=== PATIENT | female | born 1940 | race Caucasian/White ===

== ENCOUNTER → 2016-05-09 | Outpatient (CLI) | payer MEDICARE, OTHER ==
[~2016-05-09] MED LIST: AMARYL2 MG PO; BACITRACIN--O.0.9 GM TP; BETADINE DPS1 GM TP; BREO ELLIPTA 21 EACH IH; COLACE-DPS100 MG PO; DELTASONE DPS10 MG PO; DILAUDID2 MG PO; DULCOLAX-DPS10 MG PR; DULERA 200/58.8 GM IH; DUONEB DPS3 ML IH; DURAGESIC1 EAC2 TP; INDERAL LA80 MG PO; MEVACOR40 MG PO; MILK OF MAGNESI10 ML PO; MYCOSTATIN PWD15 GM TP; NEURONTIN DPS100 MG PO; NEURONTIN DPS400 MG PO; NEXIUM40 MG PO; NOVOLOG100 UNIT/2 SQ; ONGLYZA5 MG PO; OXYCODON-ACETA1 EAC1 PO; PRESERVISION A1 EAC2 PO; PROAIR RESPICL90 MCG IH; PROTONIX40 MG PO; SENOKOT S1 TAB PO; SOOTHE LUBRICA1 EACH OU; SURFAK DPS240 MG PO; THERAPEUTIC MUL1 TA1 PO; TOPAMAX100 MG PO; VALIUM-DPS5 MG PO; VITAMIN D-32000 UNI1 PO
== END | disposition home or self-care (01) ==
LOC: RESC 01-31 15:23
DX: J84.9 Interstitial pulmonary disease, unspecified (principal); R94.2 Abnormal results of pulmonary function studies

== ENCOUNTER → 2016-05-30 | Outpatient (CLI) | payer MEDICARE, OTHER | END | disposition home or self-care (01) | LOC: PTH.S 08:38 | DX: Z01.812 Encounter for preprocedural laboratory examination (principal) ==

== ENCOUNTER 2016-06-04 06:58 | Inpatient (IN) | payer MEDICARE, OTHER ==
--- NOTE | 2016-06-02 09:37 | NUR ---
Received SAD person referral. Called and spoke with pt. Pt states she was a teenager when she last tried to harm herself. Pt denies current thoughts of self harm and does not have a plan. Pt states she does not take any anti-depressant medications and does not see a counselor. Pt denies any needs or concerns at this time.
[~2016-06-04] VITALS: Ht 167.6 cm; Wt 110.6 kg
--- NOTE | ~2016-06-04 | DS ---
ADMIT: 06/04/2016 RM/LOC: 533 [facility] MR#: [id number] [facility]#: [id number] [address] [facility] [address] [place], [place] [address] REN ODONNELL [address] [place] [address] General Discharge Summary SEX: F AGE: 75 : 1940 ADMISSION DATE: 06/04/2016 DISCHARGE DATE: 06/09/2016 REASON FOR ADMISSION: 1. Lumbar stenosis. 2. Lumbosacral radiculopathy. 3. History of lumbar fusion. PROCEDURE: Extension of her posterolateral fusion at lumbar 1-2 with removal of prior hardware. HOSPITAL COURSE: Ms. Odonnell tolerated her procedure well. Postoperatively, she was taken to the Med/Surg floor for monitoring and care. Dr. Freitas was consulted for co-management of her pulmonary and diabetes care. Her pain medication was adjusted. Postop day #1, she was awake and alert. She was afebrile. Her vital signs were stable. She was moving all extremities x4 with 5/5 strength. She reported the pain in her right legs were gone. Her incision was clean, dry, and intact. Her EMILI drain was patent with serosanguineous drainage. She was working with Physical Therapy and Occupational Therapy and was tolerating this quite well. She was still having some increased pain and her pain medication was adjusted for her again. On postop day #2, she was awake and alert. She was afebrile and her vital signs were stable. She was moving all extremities x4. Her incision was clean, dry, and intact. Her EMILI drain was patent with serosanguineous drainage. She was started on some p.o. pain medicine to try to get her off the IV medication. She continued to work with therapy. On postop day #3, she was afebrile. There was some difficulty controlling her pain. She was started on fentanyl patch. Her incision was clean, dry, and intact. Her EMILI drain was discontinued without difficulty. Postop day #4, her pain was improved. The fentanyl patch was helping. She was evaluated by the inpatient rehabilitation unit and deemed to be doing too well for dismissal to the inpatient rehabilitation unit. Postop day #5, she was awake and alert. She was afebrile. Her vital signs were stable. She was moving all extremities x4 with 5/5 strength. She was complaining of some low back pain as well as some left hip/groin pain. Her incision was clean, dry, and intact. She was evaluated by Maye Cornejo and deemed to be an appropriate candidate for their rehabilitation unit. On the day of discharge, she was deemed medically fit for transfer to the [facility] Rehab Unit. DISCHARGE CONDITION: Good. MEDICATIONS: 1. NovoLog sliding scale moderate dose a.c. and bedtime 131-180, 4 units; 181-240, 8 units, 241-300, 10 units; 301-350, 12 units, 351-400, 16 units; over 400, 20 units and call the doctor. 2. Amaryl 3 mg daily. 3. Colace 100 mg b.i.d. 4. Inderal 80 mg at bedtime. 5. Mevacor 40 mg q.p.m. 6. Milk of magnesia 10 mL p.o. q.a.m. ADMIT: 06/04/2016 RM/LOC: 533 [facility] MR#: [id number] [address] [address] [place] [address] General Discharge Summary SEX: F AGE: 75 : 1940 7. Neurontin 400 mg 2 tablets t.i.d. 8. Neurontin 200 mg t.i.d. 9. Onglyza 5 mg daily. 10.Protonix 40 mg daily. 11.Senokot one tab b.i.d. 12.Surfak 240 at bedtime. 13.Multivitamin daily. 14.Topamax 100 mg q.a.m. 15.Topamax 150 mg at bedtime. 16.Vitamin D 4000 units q.a.m. 17.Dulera two puffs b.i.d. 18.DuoNeb inhalation q.i.d. 19.Dulcolax suppository 10 mg q.a.m. 20.Bactroban to incision daily x14 days. 21.Duragesic patch 50 mcg, change Q. 72 hours. 22.Mycostatin powder to the groin b.i.d. 23.Dilaudid 2 mg p.o. q.4 hours p.r.n. pain. 24.Valium 5 mg 1-2 tablets p.o. q.8 hours p.r.n. 25.Betadine to the incision q.a.m. x14 days. DISCHARGE INSTRUCTIONS: Per Dr. Samano, she can have a diabetic diet. She may shower, she should not take any tub baths, she should pat her incision dry. She should wear her TLSO at all times when out of bed. She may sit on the edge of the bed to apply the brace. She should not take any NSAIDs. She should not lift anything greater than 15 pounds. It is okay to have the brace off when sitting in the chair but she needs to have her brace on when she is up and ambulating. She is to continue with Physical Therapy and Occupational Therapy. She will call with any questions or concerns including neurological worsening, signs or symptoms of infection, or any other issues. FOLLOWUP: She will follow up with Yvrose in clinic in 2 weeks. DISPOSITION: She was discharged to the [facility] Rehab Floor. Total [id number] time for the discharge planning care and coordination was 30 minutes. Yvrose Lo APRN / Justo Samano MD / brianda JOB #: [id number] CC: Justo Samano MD, Attending Physician Gila Freitas MD, Family Physician
[~2016-06-04 06:58] MED LIST changes: -BACITRACIN--O.0.9 GM TP; -BETADINE DPS1 GM TP; -BREO ELLIPTA 21 EACH IH; -COLACE-DPS100 MG PO; -DILAUDID2 MG PO; -DULCOLAX-DPS10 MG PR; -DULERA 200/58.8 GM IH; -DUONEB DPS3 ML IH; -DURAGESIC1 EAC2 TP; -MILK OF MAGNESI10 ML PO; -MYCOSTATIN PWD15 GM TP; -NEURONTIN DPS100 MG PO; -NOVOLOG100 UNIT/2 SQ; -OXYCODON-ACETA1 EAC1 PO; -PROAIR RESPICL90 MCG IH; -PROTONIX40 MG PO; -SENOKOT S1 TAB PO; -VALIUM-DPS5 MG PO
--- NOTE | 2016-06-06 16:18 | CO ---
ADMIT: 06/04/2016 RM/LOC: 533 [facility] MR#: [id number] [address] [facility] [address] [place], [place] [address] REN ALTAMIRANO Mer[place] [address] [place] [address] Consultation SEX: F AGE: 75 : 1940 DATE OF CONSULTATION: 06/04/2016 ATTENDING PHYSICIAN: Justo Samano CONSULTING PHYSICIAN: Ellis Crain MD REASON FOR CONSULTATION: Please help with management of her diabetes and chronic medical conditions. HISTORY OF PRESENT ILLNESS: Ren is a 75-year-old female, well known to my partner, Dr. Gila Freitas. She is postoperative day 0 of a laminectomy and fusion. She is evaluated in her room in 533. She is resting quietly. She has end-tidal CO2 in place. Vital signs are stable. States that her pain is well controlled. States that she does have a history of diabetes, and she does see Dr. Freitas frequently. Also, does appear to have a history of obstructive sleep apnea, tremors, and a relatively long history of chronic pain, and chronic lung disease. She did well operatively and is currently without complaints. PAST MEDICAL HISTORY: 1. Uncontrolled type 2 diabetes mellitus. 2. Obstructive sleep apnea, on CPAP. 3. Essential tremors. 4. Spinal stenosis. 5. Peripheral neuropathy. 6. Hyperlipidemia. 7. Arthritis. 8. Interstitial and restrictive lung disease. 9. Restless legs syndrome. MEDICATIONS: 1. Januvia. 2. Glimepiride. 3. Onglyza. 4. Meloxicam. 5. Topiramate. 6. Gabapentin. 7. Prilosec. 8. Lovastatin. 9. Propranolol. 10.Oxycodone. 11.Vitamin D. 12.Docusate. 13.Centrum Silver. 14.DuoNeb. 15.Ventolin. 16.Breo. 17.Soothe eye drops. ADMIT: 06/04/2016 RM/LOC: 533 [facility] MR#: [id number] [address] [facility] [address] [place] [id number] REN ALTAMIRANO [address] [place] [address] Consultation SEX: F AGE: 75 : 1940 18.PreserVision. ALLERGIES: SULFA, ADHESIVES, LYRICA, CODEINE, AND METFORMIN. FAMILY HISTORY: Mother with coronary artery disease and congestive heart failure. Brother with aortic stenosis. Multiple family members extensively with diabetes and heart disease. REVIEW OF SYSTEMS: Complete review of systems reviewed per HPI. PHYSICAL EXAMINATION: VITAL SIGNS: Blood pressure is 150/78, pulse 69, respiratory rate is 20, 96.9, and 94%. GENERAL: She is alert and oriented x3. No acute distress. HEENT: Normocephalic, atraumatic. Extraocular muscles intact. Pupils equal, round, responsive to light. No nasal discharge. NECK: Supple. HEART: Regular rhythm and rate. LUNGS: Clear to auscultation, mildly distant. ABDOMEN: Soft, nontender. EXTREMITIES: No clubbing or cyanosis. BACK: Evaluated, she has a bandage in place with a EMILI drain in place. No acute cellulitis. There is no hematoma on examination. LABORATORY DATA: No recent laboratories. INR was less than 1 this morning. ASSESSMENT AND PLAN: 1. Postoperative day 0, laminectomy infusion. 2. Hypertension. 3. Hyperlipidemia. 4. Diabetes. 5. Restrictive lung disease. 6. Gastroesophageal reflux disease. 7. Neuropathy. 8. Tremors. 9. Restless legs syndrome. I will go ahead and discontinue her Januvia, glimepiride, and Onglyza. I will place her on a low-dose Humalog a.c. bedtime supplemental scale insulin. I will place her on EzPAP in addition to her chronic bronchodilator therapy, and I will get a CBC and a CMP and an A1c in the morning. I will continue to follow this patient and make recommendations based on her clinical progress. Ellis Crain MD/ brianda JOB #: [id number] CC: Justo Samano, Attending Physician ADMIT: 06/04/2016 RM/LOC: 533 [facility] MR#: [id number] [address] [address] REN ALTAMIRANO [facility] [address] [place] [address] Consultation SEX: F AGE: 75 : 1940 Gila Freitas Family Physician
--- NOTE | 2016-06-09 13:29 | OR ---
ADMIT: 06/04/2016 RM/LOC: W.02 [facility] MR#: [id number] [address] [address] REN ALTAMIRANO [address] [place] [address] Operative/Delivery Room Report SEX: F AGE: 75 : 1940 SURGERY DATE: 06/04/2016 SURGEON: Justo Samano MD PREOPERATIVE DIAGNOSIS: Herniated nucleus pulposus and severe stenosis, also from degenerative capacity, lumbar 1-2 at the supra adjacent level to the prior fusion with radiculopathy and claudication. POSTOP DIAGNOSIS: Herniated nucleus pulposus and severe stenosis and also from degenerative capacity, lumbar 1-2 at the supra adjacent level to the prior fusion with radiculopathy and claudication. PROCEDURES: 1. Wide lumbar 1-2 laminectomy and facetectomy as wide as necessary for resection of scar tissue and decompression of thecal sac posteriorly. 2. [place] of autograft with morcellation and admixture with allograft and packed into the posterolateral gutters for posterior arthrodesis. 3. Placement of a lumbar 1 pedicle screws with connection to existing hardware after resection of scar tissue. 4. Explant of prior cross connector hardware from the patient's [employer] set to allow room for adaptation of the new instrumentation to this prior set. CALENDER OPERATOR: Yvrose Lo APRN. DESCRIPTION OF THE PROCEDURE: After gaining informed consent, the patient was taken to the operative theater, placed under general endotracheal anesthesia in supine position and turned prone on a Kevin table. All pressure points purposely padded prior to performing the procedure. She was prepped and draped in usual sterile fashion. A time-out was utilized to ascertain the correct site and side of surgery as well as other pertinent patient historical information. Counts were obtained at the beginning and end of the case with no change betwixt the two. Antibiotics were given before 1 hour of incision. Fluoroscope was brought into the field and the lumbar 1-2 level was delineated. The incision was re-opened at this level, taken down through extensive scar tissue reviewing the cross connector and superior level/L2 screws. An extensive amount time was taken in resecting through this scar tissue, freeing up the cross connection. This was significantly more difficult than what it would usually be encompass due to that density of the scar tissue as well as later in the case. Severe amount of scarring to the anterior thecal sac making the diskectomy that was considered not possible. The cross connector was removed and further dissection was taken out to make room for the new cross connecting head. Some of the fused area of the bone was drilled back in the prior posterolateral gutters. Once this was done, there was enough room for the adapting linking head to attach onto the prior amanda and this was placed and torqued to appropriate setting. Various curettes, rongeurs, and a high-speed drill were then used to resect ADMIT: 06/04/2016 RM/LOC: W.02 [facility] MR#: [id number] [address] [place] [id number] REN ALTAMIRANO [facility] [address] [place] [address] Operative/Delivery Room Report SEX: F AGE: 75 : 1940 the lamina and medial aspect to the facets resecting this widely at lumbar 1-2 visualizing the thecal sac, resecting up significant scar tissue off the thecal sac taking precautions to attempt to ensure that the thecal sac was not breached. Once this was widely undertaken, everything appeared to be very well decompressed on posterior aspect. At this point, I attempted to navigate anterior to the thecal sac to resect what on MRI appears to be a large disk fragment. There was such extensive scar tissue, I could not be certain where the thecal sac ended and scar tissue and other abnormal tissue began. Because of this, there was no safe window on either side to be able to resect any of the disk fragment from anteriorly. At this point, attention was then turned to instrumentation. The fluoroscope was used and the posterior representation of the pedicle of L1 was visualized and decorticated. The pedicle finder was then passed down through the pedicle and subsequently sounded and 55 mm DePuy [employer] screws were implanted bilaterally at L1 with no sign of complication. CT scan was obtained to evaluate the screw fixation and then the posterior instrumentation was trimmed to appropriate size, and locked into place. The autograft harvested from the same incision from the posterior elements was morcellated and admixed with morcellated allograft and packed into the posterolateral recesses after decorticating the transverse processes. Once this was completed, attention was turned to closure. The wound was closed with simple interrupted 0 Vicryl in the deep scar tissue, simple inverted interrupted 2-0 Vicryl in the scar tissue, and subcuticular 3-0 Stratafix and Steri-Strips over that. A EMILI drain was daylighted out. Frandy CooperTeresita assisted with suction, retraction, and closure at the end of the case. COMPLICATIONS: None. ESTIMATED BLOOD LOSS: Charted. SPECIMEN: None. DISPOSITION: Extubated and taken to the Postanesthesia Care Unit. Justo Samano MD/ brianda JOB #: [id number] CC: Justo Samano, Attending Physician Gila Freitas, Family Physician
[2016-06-10] MEDS ORDERED: COLACE-DPS100 MG PO (07:15)
[2016-06-10] MEDS ORDERED: MILK OF MAGNESI10 ML PO (07:24)
[2016-06-10] MEDS ORDERED: SENOKOT S1 TAB PO (07:25)
[2016-06-10] MEDS ORDERED: PROTONIX40 MG PO (07:25)
[2016-06-10] MEDS ORDERED: DULERA 200/58.8 GM IH (07:25)
[2016-06-10] MEDS ORDERED: NEURONTIN DPS100 MG PO (07:25)
[2016-06-10] MEDS ORDERED: DULCOLAX-DPS10 MG PR (07:26)
[2016-06-10] MEDS ORDERED: DUONEB DPS3 ML IH (07:26)
[2016-06-10] MEDS ORDERED: NOVOLOG100 UNIT/2 SQ (07:27)
[2016-06-10] MEDS ORDERED: BACITRACIN--O.0.9 GM TP (07:28)
[2016-06-10] MEDS ORDERED: DURAGESIC1 EAC2 TP (07:28)
[2016-06-10] MEDS ORDERED: VALIUM-DPS5 MG PO (07:29)
[2016-06-10] MEDS ORDERED: MYCOSTATIN PWD15 GM TP (07:29)
[2016-06-10] MEDS ORDERED: DILAUDID2 MG PO (07:29)
[2016-06-10] MEDS ORDERED: OXYCODON-ACETA1 EAC1 PO (07:31)
[2016-06-10] MEDS ORDERED: BREO ELLIPTA 21 EACH IH (07:33)
[2016-06-10] MEDS ORDERED: PROAIR RESPICL90 MCG IH (07:34)
[2016-06-10] MEDS ORDERED: BETADINE DPS1 GM TP (07:36)
== END 2016-06-09 14:13 | DRG 460 ==
LOC: WOR 06:58 → 5MS 06:58
PROVIDERS: ADMIT Neurological Surgery
PROC: 0SG0071 Fusion of Lumbar Vertebral Joint with Autologous Tissue Substitute, Posterior Approach, Posterior Column, Open Approach (ICD-10-PCS; principal; 2016-06-04)
PROC: 0SB20ZZ Excision of Lumbar Vertebral Disc, Open Approach (ICD-10-PCS; principal; 2016-06-04)
PROC: 0QP004Z Removal of Internal Fixation Device from Lumbar Vertebra, Open Approach (ICD-10-PCS; principal; 2016-06-04)
DX: M47.26 Other spondylosis with radiculopathy, lumbar region (principal); J96.10 Chronic respiratory failure, unspecified whether with hypoxia or hypercapnia; E11.42 Type 2 diabetes mellitus with diabetic polyneuropathy; D62 Acute posthemorrhagic anemia; J84.10 Pulmonary fibrosis, unspecified; E11.65 Type 2 diabetes mellitus with hyperglycemia; M51.16 Intervertebral disc disorders with radiculopathy, lumbar region; G47.33 Obstructive sleep apnea (adult) (pediatric); G25.0 Essential tremor; E66.9 Obesity, unspecified; Z68.39 Body mass index [BMI] 39.0-39.9, adult; K21.9 Gastro-esophageal reflux disease without esophagitis; L30.4 Erythema intertrigo; F32.9 Major depressive disorder, single episode, unspecified; I10 Essential (primary) hypertension; E78.5 Hyperlipidemia, unspecified; M19.90 Unspecified osteoarthritis, unspecified site; G25.81 Restless legs syndrome; Z82.49 Family history of ischemic heart disease and other diseases of the circulatory system; Z79.84 Long term (current) use of oral hypoglycemic drugs; Z96.643 Presence of artificial hip joint, bilateral; Z98.1 Arthrodesis status; Z99.81 Dependence on supplemental oxygen

== ENCOUNTER → 2016-06-20 | Outpatient (CLI) | payer MEDICARE, OTHER ==
[~2016-06-20] MED LIST changes: +BACITRACIN--O.0.9 GM TP; +BETADINE DPS1 GM TP; +BREO ELLIPTA 21 EACH IH; +COLACE-DPS100 MG PO; +DILAUDID2 MG PO; +DULCOLAX-DPS10 MG PR; +DULERA 200/58.8 GM IH; +DUONEB DPS3 ML IH; +DURAGESIC1 EAC2 TP; +MILK OF MAGNESI10 ML PO; +MYCOSTATIN PWD15 GM TP; +NEURONTIN DPS100 MG PO; +NOVOLOG100 UNIT/2 SQ; +OXYCODON-ACETA1 EAC1 PO; +PROAIR RESPICL90 MCG IH; +PROTONIX40 MG PO; +SENOKOT S1 TAB PO; +VALIUM-DPS5 MG PO
== END | disposition home or self-care (01) ==
LOC: RAD.S 08:39
DX: M48.05 Spinal stenosis, thoracolumbar region (principal); M25.552 Pain in left hip; M79.1 Myalgia; R10.30 Lower abdominal pain, unspecified; K57.30 Diverticulosis of large intestine without perforation or abscess without bleeding; Z96.643 Presence of artificial hip joint, bilateral; Z98.890 Other specified postprocedural states

== ENCOUNTER → 2016-07-31 | Outpatient (CLI) | payer MEDICARE, OTHER ==
--- NOTE | ~2016-07-31 | ECH ---
Transthoracic Echocardiography Report (TTE) Demographics Patient Name REN ALTAMIRANO Date of Study 07/31/2016 Patient Number [id number] Visit Number [id number] Date of 1940 Room Number Accession Number [id number] Gender Female Age 75 year(s) Referring Zena Uriostegui Mail Room Lynsey Velasquez [facility] Physician A Ira Mcallister MD Physician Interpreting Harsh Cano MD [employer] Farmworker Physician Supervising Ordering Physician Ira Mcallister MD/MLP Nurse Stress Analysis Evaluator Conclusions Summary Technically fair exam. The estimated left ventricular ejection fraction is 60-65%. Mild left ventricular hypertrophy. Diastolic assessment reveals Grade II pseudonormal diastolic function . Normal right ventricle structure and function. Trivial tricuspid regurgitation by color Doppler. Estimated pulmonary pressures within normal range. Trivial pulmonic valve regurgitation by color Doppler. Procedure Type of Study TTE procedure:Echo Complete SF. Procedure Date Date: 07/31/2016 Start: 01:30 PM Technical Quality: Fair due to lung interference. Indications:Dyspnea with exertion. Appropriate Use Criteria: 9 Height: 66 inches Weight: 243 pounds BSA: 2.17 m Rhythm: Sinus bradycardia HR: 55 bpm BP: 121/44 mmHg M-Mode/2D Measurements LV Diastolic Dimension: 5.19 cm LV Systolic Dimension: 3.11 cm LV Septum Diastolic: 1.11 cm LV PW Diastolic: 1.04 cm AO Root Dimension: 2.46 cm Cardiac Output: 4.93 l/min LA Dimension: 4.41 cm Cardiac Index: 2.27 l/min*m RV Diastolic Dimension: 3.77 cm LA volume index: 25 ml/m LVOT: 1.75 cm LVOT VTI: 37.32 cm RV Base: 2.6 cm LV Stroke volume: 89.72 ml RV Mid: 1.6 cm LV Stroke volume index: 41.35 ml/m RV Length: 6 cm Doppler Measurements AV Peak Velocity: 1.07 m/s MV Peak E-Wave: 1.09 m/s AV Peak Gradient: 4.58 mmHg MV Peak A-Wave: 0.91 m/s AV Mean Gradient: 7.79 mmHg MV E/A Ratio: 1.2 LVOT Peak Velocity: 1.66 m/s MV P1/2t: 54.1 msec AV Area (Continuity):2.32 cm MV Deceleration Time: 174 msec TR Velocity:2.68 m/s MV Area (PHT): 4.07 cm TR Gradient:28.66 mmHg Estimated RAP:5 mmHg Estimated PASP: 33.66 mmHg Estimated RVSP: 34 mmHg RA Area: 9.92 cm Findings Left Ventricle The left ventricle is normal in size . Mild left ventricular hypertrophy. Diastolic assessment reveals Grade II pseudonormal diastolic function . Right Ventricle Normal right ventricle structure and function. Left Atrium Normal left atrial size. Right Atrium Normal right atrial size. Mitral Valve Normal mitral valve structure and function. Aortic Valve Normal aortic valve structure and function. Tricuspid Valve Normal tricuspid valve structure and function. Trivial tricuspid regurgitation by color Doppler. Estimated pulmonary pressures within normal range. Pulmonic Valve The pulmonic valve is not well visualized. Trivial pulmonic valve regurgitation by color Doppler. Pericardial Effusion No evidence of pericardial effusion. Miscellaneous Visualized portions of the aortic root and ascending aorta appear normal in size. Signature
== END | disposition home or self-care (01) ==
LOC: RAD.S 07-29 13:29
DX: R06.02 Shortness of breath (principal); R06.89 Other abnormalities of breathing; R06.00 Dyspnea, unspecified; R91.8 Other nonspecific abnormal finding of lung field; I51.7 Cardiomegaly

== ENCOUNTER → 2016-08-07 | Outpatient (CLI) | payer MEDICARE, OTHER | END | disposition home or self-care (01) | LOC: PTH.S 07-29 13:17 → RAD.S 09:35 → PTH.S 10:30 → RAD.S 10:45 | DX: M25.551 Pain in right hip (principal); M25.451 Effusion, right hip; K57.30 Diverticulosis of large intestine without perforation or abscess without bleeding ==

== ENCOUNTER → 2016-09-22 | Outpatient (CLI) | payer MEDICARE, OTHER | END | disposition home or self-care (01) | LOC: RAD.S 12:57 | DX: M54.2 Cervicalgia (principal); M50.30 Other cervical disc degeneration, unspecified cervical region; M47.892 Other spondylosis, cervical region; M48.02 Spinal stenosis, cervical region ==